=== PATIENT | male | born 1985 | race Caucasian/White ===

== ENCOUNTER 2022-10-27 19:12 | Outpatient (REF) | payer OTHER, SELFPAY ==
[2022-10-27 22:35] LABS: ALT 103 U/L (16-63); AST 72 U/L (15-37); Albumin 4.2 g/dL (3.4-5.0); Alkaline Phosphatase 66 U/L (46-116); Anion Gap 12.8 mmol/L (3-11); BUN 12 mg/dL (7-18); Bilirubin, Total 0.3 mg/dL (0.2-1.0); CO2 24.2 mmol/L (21.0-32.0); CREATININE 0.8 mg/dL (0.70-1.30); Calcium 9.5 mg/dL (8.5-10.1); Calculated LDL 95 mg/dL (<100); Chloride 104 mmol/L (98-107); Cholesterol 177 mg/dL (<200); Glucose 99 mg/dL (74-106); HDL Cholesterol 72 mg/dL (40-60); Potassium 3.9 mmol/L (3.5-5.1); Sodium 141 mmol/L (136-145); Triglyceride 51 mg/dL (<150)
[2022-10-29 11:01] LABS: HIV-1/2 Ag & Ab Screen Negative (Negative)
[2022-10-29 11:08] LABS: Hepatitis C Ab w Rflx HCV PCR Negative (Negative)
== END 2022-10-27 19:13 | disposition home or self-care (01) ==
LOC: NCHCN 19:12
PROVIDERS: PCP Nurse Practitioner Family; Visit Provider Nurse Practitioner Family
DX: F10.10 Alcohol abuse, uncomplicated (principal); Z13.220 Encounter for screening for lipoid disorders; Z11.4 Encounter for screening for human immunodeficiency virus [HIV]; Z11.59 Encounter for screening for other viral diseases
CPT/HCPCS: 80053; 80061; 86803; 87389